=== PATIENT | female | born 1970 | race African-American/Black ===

== ENCOUNTER 2021-08-14 10:41 | Emergency (ER) | payer OTHER, SELFPAY | END 2021-08-14 14:41 | disposition home or self-care (01) | LOC: CSHERS 10:41 | DX: S09.90XA Unspecified injury of head, initial encounter (principal); M54.2 Cervicalgia; M54.6 Pain in thoracic spine; V89.2XXA Person injured in unspecified motor-vehicle accident, traffic, initial encounter | CPT/HCPCS: 70450; 72125 ==

== ENCOUNTER 2024-03-25 09:19 | Emergency (ER) | payer OTHER, SELFPAY | END 2024-03-25 09:56 | disposition home or self-care (01) | LOC: CSHERS 09:19 | DX: M54.2 Cervicalgia (principal); Z87.891 Personal history of nicotine dependence | CPT/HCPCS: 99283 ==